=== PATIENT | male | born 1995 | race Caucasian/White ===

== ENCOUNTER 2019-05-26 10:14 | Emergency (ER) | payer BC ==
[~2019-05-26] VITALS: Ht 180.3 cm; Wt 60.5 kg
[~2019-05-26 10:14] MED LIST: ALPR1TAB7 ORAL; NALO4SPR NS; TRAZ-150 ORAL
[2019-05-26 10:18] VITALS: Ht 180.3 cm; Wt 60.5 kg
[2019-05-26 17:27] VITALS: BP 94/40; PULSE 60; RESP 16
== END 2019-05-26 19:44 | disposition home or self-care (01) ==
LOC: E/R 10:14
DX: F32.9 Major depressive disorder, single episode, unspecified (principal); F17.210 Nicotine dependence, cigarettes, uncomplicated
CPT/HCPCS: 36415; 80053; 80307; 81001; 81003; 85025; 99283